=== PATIENT | female | born 1975 ===

== ENCOUNTER 2022-05-15 17:01 | Emergency (ER) | payer OTHER ==
[2022-05-15] MEDS ORDERED: Cyclobenzaprine 10 MG Tab PO ONE (17:02)
[2022-05-15] MEDS: Ketorolac 30 MG/ML SDV IM ONE (17:59)
[2022-05-15] MEDS: Acetaminophen 500 MG Tab PO ONE (17:59)
== END 2022-05-15 18:53 | disposition home or self-care (01) ==
LOC: FB.ED 17:01
DX: S16.1XXA Strain of muscle, fascia and tendon at neck level, initial encounter (principal); S39.012A Strain of muscle, fascia and tendon of lower back, initial encounter; G44.209 Tension-type headache, unspecified, not intractable; V43.53XA Car driver injured in collision with pick-up truck in traffic accident, initial encounter
CPT/HCPCS: 72040; 96372; 99284; A9270; J1885